=== PATIENT | male | born 1945 | race Caucasian/White ===

== ENCOUNTER → 2018-08-08 06:27 | Outpatient (CLI) | payer OTHER | END | disposition home or self-care (01) | LOC: LAB 06:27 | DX: D50.0 Iron deficiency anemia secondary to blood loss (chronic) (principal); D51.8 Other vitamin B12 deficiency anemias; E03.8 Other specified hypothyroidism; N40.0 Benign prostatic hyperplasia without lower urinary tract symptoms; I10 Essential (primary) hypertension; R19.5 Other fecal abnormalities; D51.1 Vitamin B12 deficiency anemia due to selective vitamin B12 malabsorption with proteinuria; D55.0 Anemia due to glucose-6-phosphate dehydrogenase [G6PD] deficiency; E06.3 Autoimmune thyroiditis; E11.9 Type 2 diabetes mellitus without complications; D51.0 Vitamin B12 deficiency anemia due to intrinsic factor deficiency; R97.8 Other abnormal tumor markers; K57.30 Diverticulosis of large intestine without perforation or abscess without bleeding; D68.8 Other specified coagulation defects; D68.32 Hemorrhagic disorder due to extrinsic circulating anticoagulants; R97.0 Elevated carcinoembryonic antigen [CEA]; D50.8 Other iron deficiency anemias ==

== ENCOUNTER 2018-08-16 07:07 | Outpatient (CLI) | payer OTHER | END 2018-08-16 08:08 | disposition home or self-care (01) | LOC: NUCLEAR 07:07 | DX: I11.9 Hypertensive heart disease without heart failure (principal); E11.9 Type 2 diabetes mellitus without complications; I25.10 Atherosclerotic heart disease of native coronary artery without angina pectoris | CPT/HCPCS: 78452; 93017; A9500 ==

== ENCOUNTER 2018-08-22 07:15 | Inpatient (IN) | payer OTHER ==
[~2018-08-22] VITALS: Ht 188 cm; Wt 93.4 kg
[2018-08-22] MEDS ORDERED: LANTUS (16:45)
[2018-08-22] MEDS ORDERED: FORTAMET1000 MG PO (16:46)
[2018-08-22] MEDS ORDERED: COZAAR100 MG PO (16:46)
[2018-08-22] MEDS ORDERED: AMARYL PO (16:47)
[2018-08-22] MEDS ORDERED: NORVASC2.5 M1 PO (16:47)
[2018-08-30] MEDS ORDERED: GLIMEPIRIDE1 MG PO (09:17)
== END 2018-09-02 19:00 | disposition home or self-care (01) | DRG 331 ==
LOC: ADM 07:15 → EDSTATUS 07:15 → O/R 08-30 05:45 → RECOVERY 08-30 07:15 → SURH 08-31 18:51 → O/R 08-31 22:02 → SURH 08-31 22:05 → MEDI 08-31 22:05 → SURH 09-02 19:00
PROVIDERS: Colon & Rectal Surgery
PROC: 0DJD8ZZ Inspection of Lower Intestinal Tract, Via Natural or Artificial Opening Endoscopic (ICD-10-PCS; 2018-08-30)
PROC: 5A09457 Assistance with Respiratory Ventilation, 24-96 Consecutive Hours, Continuous Positive Airway Pressure (ICD-10-PCS; 2018-08-30)
PROC: 4A033R1 Measurement of Arterial Saturation, Peripheral, Percutaneous Approach (ICD-10-PCS; 2018-08-30)
PROC: 3E0F7GC Introduction of Other Therapeutic Substance into Respiratory Tract, Via Natural or Artificial Opening (ICD-10-PCS; 2018-08-30)
PROC: 0DTN4ZZ Resection of Sigmoid Colon, Percutaneous Endoscopic Approach (ICD-10-PCS; principal; 2018-08-30 14:15)
PROC: 4A12X4Z Monitoring of Cardiac Electrical Activity, External Approach (ICD-10-PCS; 2018-08-31)
DX: K57.32 Diverticulitis of large intestine without perforation or abscess without bleeding (principal); G47.33 Obstructive sleep apnea (adult) (pediatric); I11.9 Hypertensive heart disease without heart failure; E11.9 Type 2 diabetes mellitus without complications; J44.9 Chronic obstructive pulmonary disease, unspecified; E78.00 Pure hypercholesterolemia, unspecified; E03.8 Other specified hypothyroidism; D64.89 Other specified anemias; E53.8 Deficiency of other specified B group vitamins

== ENCOUNTER 2018-11-16 07:21 | Outpatient (CLI) | payer OTHER ==
[~2018-11-16 07:21] MED LIST: AMARYL PO; COZAAR100 MG PO; FORTAMET1000 MG PO; GLIMEPIRIDE1 MG PO; LANTUS; NORVASC2.5 M1 PO
== END 2018-11-16 07:30 | disposition home or self-care (01) ==
LOC: LAB 07:21
DX: D50.0 Iron deficiency anemia secondary to blood loss (chronic) (principal); D51.8 Other vitamin B12 deficiency anemias; D51.1 Vitamin B12 deficiency anemia due to selective vitamin B12 malabsorption with proteinuria; D51.0 Vitamin B12 deficiency anemia due to intrinsic factor deficiency; I10 Essential (primary) hypertension; E03.8 Other specified hypothyroidism

== ENCOUNTER 2019-10-06 05:18 | Day surgery (SDC) | payer OTHER | END 2019-10-06 10:05 | disposition home or self-care (01) | LOC: AMB-ENDOS 05:18 | DX: K57.32 Diverticulitis of large intestine without perforation or abscess without bleeding (principal); K29.50 Unspecified chronic gastritis without bleeding; K44.9 Diaphragmatic hernia without obstruction or gangrene; K64.1 Second degree hemorrhoids ==

== ENCOUNTER 2019-12-05 06:46 | Outpatient (CLI) | payer OTHER | END 2019-12-05 06:56 | disposition home or self-care (01) | LOC: LAB 06:46 | DX: D50.8 Other iron deficiency anemias (principal); I10 Essential (primary) hypertension; E11.9 Type 2 diabetes mellitus without complications; D63.8 Anemia in other chronic diseases classified elsewhere; R97.0 Elevated carcinoembryonic antigen [CEA]; R97.8 Other abnormal tumor markers; D50.0 Iron deficiency anemia secondary to blood loss (chronic); K57.30 Diverticulosis of large intestine without perforation or abscess without bleeding; D68.32 Hemorrhagic disorder due to extrinsic circulating anticoagulants ==

== ENCOUNTER 2020-05-22 06:52 | Outpatient (CLI) | payer OTHER | END 2020-05-22 07:03 | disposition home or self-care (01) | LOC: LAB 06:52 | PROVIDERS: ATTEND Internal Medicine Hematology & Oncology | DX: D50.8 Other iron deficiency anemias (principal); I10 Essential (primary) hypertension; D47.2 Monoclonal gammopathy; C90.00 Multiple myeloma not having achieved remission; D63.1 Anemia in chronic kidney disease; D50.0 Iron deficiency anemia secondary to blood loss (chronic); D51.1 Vitamin B12 deficiency anemia due to selective vitamin B12 malabsorption with proteinuria; K57.30 Diverticulosis of large intestine without perforation or abscess without bleeding; D68.32 Hemorrhagic disorder due to extrinsic circulating anticoagulants ==

== ENCOUNTER → 2020-09-09 06:21 | Outpatient (CLI) | payer OTHER | END | disposition home or self-care (01) | LOC: LAB 06:21 | PROVIDERS: ATTEND Internal Medicine Nephrology | DX: I10 Essential (primary) hypertension (principal); E11.22 Type 2 diabetes mellitus with diabetic chronic kidney disease; R80.8 Other proteinuria; D50.8 Other iron deficiency anemias; D47.2 Monoclonal gammopathy; C90.00 Multiple myeloma not having achieved remission; D50.0 Iron deficiency anemia secondary to blood loss (chronic); D51.1 Vitamin B12 deficiency anemia due to selective vitamin B12 malabsorption with proteinuria; K57.30 Diverticulosis of large intestine without perforation or abscess without bleeding; D68.32 Hemorrhagic disorder due to extrinsic circulating anticoagulants ==

== ENCOUNTER → 2021-01-27 06:44 | Outpatient (CLI) | payer OTHER | END | disposition home or self-care (01) | LOC: LAB 06:44 | PROVIDERS: ATTEND Internal Medicine Hematology & Oncology | DX: I10 Essential (primary) hypertension (principal); D50.8 Other iron deficiency anemias; R74.02 Elevation of levels of lactic acid dehydrogenase [LDH]; K76.89 Other specified diseases of liver; C90.00 Multiple myeloma not having achieved remission; D50.0 Iron deficiency anemia secondary to blood loss (chronic); D51.1 Vitamin B12 deficiency anemia due to selective vitamin B12 malabsorption with proteinuria; E11.9 Type 2 diabetes mellitus without complications; K57.30 Diverticulosis of large intestine without perforation or abscess without bleeding; D68.32 Hemorrhagic disorder due to extrinsic circulating anticoagulants ==

== ENCOUNTER 2021-02-19 07:17 | Outpatient (CLI) | payer OTHER | END 2021-02-19 07:21 | disposition home or self-care (01) | LOC: LAB 07:17 | PROVIDERS: ATTEND Internal Medicine Nephrology | DX: E11.21 Type 2 diabetes mellitus with diabetic nephropathy (principal); R80.8 Other proteinuria; I10 Essential (primary) hypertension ==

== ENCOUNTER 2021-02-27 06:39 | Outpatient (CLI) | payer OTHER | END 2021-02-27 06:41 | disposition home or self-care (01) | LOC: LAB 06:39 | PROVIDERS: ATTEND Internal Medicine Hematology & Oncology | DX: D50.8 Other iron deficiency anemias (principal); I10 Essential (primary) hypertension; R74.02 Elevation of levels of lactic acid dehydrogenase [LDH]; K76.89 Other specified diseases of liver; R79.89 Other specified abnormal findings of blood chemistry; E11.9 Type 2 diabetes mellitus without complications; D68.32 Hemorrhagic disorder due to extrinsic circulating anticoagulants; K57.30 Diverticulosis of large intestine without perforation or abscess without bleeding; D51.1 Vitamin B12 deficiency anemia due to selective vitamin B12 malabsorption with proteinuria; D50.0 Iron deficiency anemia secondary to blood loss (chronic); C90.00 Multiple myeloma not having achieved remission ==

== ENCOUNTER → 2021-03-25 06:41 | Outpatient (CLI) | payer OTHER ==
[~2021-03-25 06:41] MED LIST changes: +ABANEU-SL TABL1 EACH; +BENADRYL25 MG PO; +CHILDREN'S ASPI81 MG; +CORTISONE60 GM; +FUSION PLUS CA1 EACH; +HUMALOG100 UNIT/1; +JARDIANCE25 MG; +LIPITOR20 MG PO; +LORATADINE10 MG PO; +METFORMIN HCL1000 MG; +MONTELUKAST SOD10 MG PO; +NIFEDIPINE20 MG; +SYNTHROID50 MCG
== END | disposition home or self-care (01) ==
LOC: LAB 06:41
PROVIDERS: ATTEND Internal Medicine Hematology & Oncology
DX: E78.9 Disorder of lipoprotein metabolism, unspecified (principal); E11.65 Type 2 diabetes mellitus with hyperglycemia

== ENCOUNTER 2021-04-09 16:11 | Outpatient (CLI) | payer OTHER ==
[~2021-04-09 16:11] MED LIST changes: -ABANEU-SL TABL1 EACH; -BENADRYL25 MG PO; -CHILDREN'S ASPI81 MG; -CORTISONE60 GM; -FUSION PLUS CA1 EACH; -HUMALOG100 UNIT/1; -JARDIANCE25 MG; -LIPITOR20 MG PO; -LORATADINE10 MG PO; -METFORMIN HCL1000 MG; -MONTELUKAST SOD10 MG PO; -NIFEDIPINE20 MG; -SYNTHROID50 MCG
== END 2021-04-09 16:15 | disposition home or self-care (01) ==
LOC: RAD 16:11
PROVIDERS: ATTEND Internal Medicine Hematology & Oncology
DX: C90.00 Multiple myeloma not having achieved remission (principal); D50.0 Iron deficiency anemia secondary to blood loss (chronic); D51.1 Vitamin B12 deficiency anemia due to selective vitamin B12 malabsorption with proteinuria; I10 Essential (primary) hypertension; E11.9 Type 2 diabetes mellitus without complications; K57.30 Diverticulosis of large intestine without perforation or abscess without bleeding; D68.32 Hemorrhagic disorder due to extrinsic circulating anticoagulants

== ENCOUNTER 2021-04-25 06:48 | Outpatient (CLI) | payer OTHER | END 2021-04-25 06:49 | disposition home or self-care (01) | LOC: LAB 06:48 | PROVIDERS: ATTEND Internal Medicine Hematology & Oncology | DX: D50.8 Other iron deficiency anemias (principal); I10 Essential (primary) hypertension; R74.02 Elevation of levels of lactic acid dehydrogenase [LDH]; K76.89 Other specified diseases of liver; C90.00 Multiple myeloma not having achieved remission; D50.0 Iron deficiency anemia secondary to blood loss (chronic); D51.1 Vitamin B12 deficiency anemia due to selective vitamin B12 malabsorption with proteinuria; E11.9 Type 2 diabetes mellitus without complications; K57.30 Diverticulosis of large intestine without perforation or abscess without bleeding; D68.32 Hemorrhagic disorder due to extrinsic circulating anticoagulants ==

== ENCOUNTER 2021-05-05 17:34 | Inpatient (IN) | payer OTHER ==
[~2021-05-05] VITALS: Ht 188 cm; Wt 89.4 kg
[2021-05-05] MEDS ORDERED: LIPITOR20 MG PO (18:06)
[2021-05-05] MEDS ORDERED: METFORMIN HCL1000 MG (18:06)
[2021-05-05] MEDS ORDERED: JARDIANCE25 MG (18:06)
[2021-05-05] MEDS ORDERED: NIFEDIPINE20 MG (18:06)
[2021-05-05] MEDS ORDERED: ABANEU-SL TABL1 EACH (18:07)
[2021-05-05] MEDS ORDERED: SYNTHROID50 MCG (18:07)
[2021-05-05] MEDS ORDERED: FUSION PLUS CA1 EACH (18:07)
[2021-05-05] MEDS ORDERED: CHILDREN'S ASPI81 MG (18:07)
[2021-05-05] MEDS ORDERED: CORTISONE60 GM (18:08)
[2021-05-05] MEDS ORDERED: HUMALOG100 UNIT/1 (18:09)
[2021-05-08] MEDS ORDERED: MONTELUKAST SOD10 MG PO (14:35)
[2021-05-08] MEDS ORDERED: LORATADINE10 MG PO (14:35)
[2021-05-08] MEDS ORDERED: BENADRYL25 MG PO (14:35)
== END 2021-05-08 14:53 | disposition home or self-care (01) | DRG 607 ==
LOC: ER 17:34 → SEC-K 05-06 10:30 → MEDJ 05-06 12:32
PROVIDERS: ADMIT Internal Medicine Geriatric Medicine; ATTEND Internal Medicine Geriatric Medicine
DX: L27.0 Generalized skin eruption due to drugs and medicaments taken internally (principal); C90.00 Multiple myeloma not having achieved remission; N17.8 Other acute kidney failure; T45.1X5A Adverse effect of antineoplastic and immunosuppressive drugs, initial encounter; E86.0 Dehydration; E11.65 Type 2 diabetes mellitus with hyperglycemia; E53.8 Deficiency of other specified B group vitamins; T38.0X5A Adverse effect of glucocorticoids and synthetic analogues, initial encounter; Z20.822 Contact with and (suspected) exposure to COVID-19

== ENCOUNTER 2021-05-27 08:06 | Outpatient (CLI) | payer OTHER ==
[~2021-05-27 08:06] MED LIST changes: +ABANEU-SL TABL1 EACH; +BENADRYL25 MG PO; +CHILDREN'S ASPI81 MG; +CORTISONE60 GM; +FUSION PLUS CA1 EACH; +HUMALOG100 UNIT/1; +JARDIANCE25 MG; +LIPITOR20 MG PO; +LORATADINE10 MG PO; +METFORMIN HCL1000 MG; +MONTELUKAST SOD10 MG PO; +NIFEDIPINE20 MG; +SYNTHROID50 MCG
== END 2021-05-27 08:24 | disposition home or self-care (01) ==
LOC: LAB 08:06
PROVIDERS: ATTEND Internal Medicine Hematology & Oncology
DX: D50.8 Other iron deficiency anemias (principal); I10 Essential (primary) hypertension; R74.02 Elevation of levels of lactic acid dehydrogenase [LDH]; K76.89 Other specified diseases of liver; C90.00 Multiple myeloma not having achieved remission; D50.0 Iron deficiency anemia secondary to blood loss (chronic); D51.1 Vitamin B12 deficiency anemia due to selective vitamin B12 malabsorption with proteinuria; E11.9 Type 2 diabetes mellitus without complications; K57.30 Diverticulosis of large intestine without perforation or abscess without bleeding; D68.32 Hemorrhagic disorder due to extrinsic circulating anticoagulants

== ENCOUNTER → 2021-06-30 06:37 | Outpatient (CLI) | payer OTHER | END | disposition home or self-care (01) | LOC: LAB 06:37 | PROVIDERS: ATTEND Internal Medicine Hematology & Oncology | DX: I10 Essential (primary) hypertension (principal); D50.8 Other iron deficiency anemias; R79.89 Other specified abnormal findings of blood chemistry; R74.02 Elevation of levels of lactic acid dehydrogenase [LDH]; K76.89 Other specified diseases of liver; D47.2 Monoclonal gammopathy; C90.00 Multiple myeloma not having achieved remission; D50.0 Iron deficiency anemia secondary to blood loss (chronic); D51.1 Vitamin B12 deficiency anemia due to selective vitamin B12 malabsorption with proteinuria; E11.9 Type 2 diabetes mellitus without complications; K57.30 Diverticulosis of large intestine without perforation or abscess without bleeding; D68.32 Hemorrhagic disorder due to extrinsic circulating anticoagulants; R05 Cough; Z20.89 Contact with and (suspected) exposure to other communicable diseases; Z03.818 Encounter for observation for suspected exposure to other biological agents ruled out ==

== ENCOUNTER → 2021-08-18 06:52 | Outpatient (CLI) | payer OTHER | END | disposition home or self-care (01) | LOC: LAB 06:52 | PROVIDERS: ATTEND Internal Medicine Hematology & Oncology | DX: D50.8 Other iron deficiency anemias (principal); R79.89 Other specified abnormal findings of blood chemistry; I10 Essential (primary) hypertension; R74.02 Elevation of levels of lactic acid dehydrogenase [LDH]; K76.89 Other specified diseases of liver; D51.8 Other vitamin B12 deficiency anemias; C90.00 Multiple myeloma not having achieved remission; D50.0 Iron deficiency anemia secondary to blood loss (chronic); D51.1 Vitamin B12 deficiency anemia due to selective vitamin B12 malabsorption with proteinuria; K57.30 Diverticulosis of large intestine without perforation or abscess without bleeding; D68.32 Hemorrhagic disorder due to extrinsic circulating anticoagulants; E11.21 Type 2 diabetes mellitus with diabetic nephropathy; R80.8 Other proteinuria; E03.8 Other specified hypothyroidism; E78.2 Mixed hyperlipidemia; E56.8 Deficiency of other vitamins; N39.0 Urinary tract infection, site not specified; Z12.11 Encounter for screening for malignant neoplasm of colon; E55.9 Vitamin D deficiency, unspecified; N28.89 Other specified disorders of kidney and ureter; C18.0 Malignant neoplasm of cecum; K92.1 Melena; Z12.5 Encounter for screening for malignant neoplasm of prostate ==

== ENCOUNTER → 2021-08-20 07:24 | Outpatient (CLI) | payer OTHER | END | disposition home or self-care (01) | LOC: LAB 07:24 | PROVIDERS: ATTEND Internal Medicine Geriatric Medicine | DX: E03.8 Other specified hypothyroidism (principal); D50.8 Other iron deficiency anemias; E78.2 Mixed hyperlipidemia; I11.9 Hypertensive heart disease without heart failure; E56.8 Deficiency of other vitamins; N39.0 Urinary tract infection, site not specified; Z12.11 Encounter for screening for malignant neoplasm of colon; E55.9 Vitamin D deficiency, unspecified; N19 Unspecified kidney failure; E11.9 Type 2 diabetes mellitus without complications; R80.8 Other proteinuria; C18.0 Malignant neoplasm of cecum; K92.1 Melena; Z12.5 Encounter for screening for malignant neoplasm of prostate ==

== ENCOUNTER 2021-10-20 06:18 | Outpatient (CLI) | payer OTHER | END 2021-10-20 06:19 | disposition home or self-care (01) | LOC: LAB 06:18 | PROVIDERS: ATTEND Internal Medicine Hematology & Oncology | DX: C90.00 Multiple myeloma not having achieved remission (principal); D50.0 Iron deficiency anemia secondary to blood loss (chronic); D51.1 Vitamin B12 deficiency anemia due to selective vitamin B12 malabsorption with proteinuria; I10 Essential (primary) hypertension; E11.9 Type 2 diabetes mellitus without complications; K57.30 Diverticulosis of large intestine without perforation or abscess without bleeding; D68.32 Hemorrhagic disorder due to extrinsic circulating anticoagulants; C61 Malignant neoplasm of prostate ==

== ENCOUNTER 2021-12-24 06:26 | Outpatient (CLI) | payer OTHER | END 2021-12-24 06:27 | disposition home or self-care (01) | LOC: LAB 06:26 | PROVIDERS: ATTEND Internal Medicine Hematology & Oncology | DX: D50.8 Other iron deficiency anemias (principal); R79.9 Abnormal finding of blood chemistry, unspecified; I10 Essential (primary) hypertension; R74.02 Elevation of levels of lactic acid dehydrogenase [LDH]; K76.89 Other specified diseases of liver; D47.2 Monoclonal gammopathy; C90.00 Multiple myeloma not having achieved remission; D50.0 Iron deficiency anemia secondary to blood loss (chronic); D51.1 Vitamin B12 deficiency anemia due to selective vitamin B12 malabsorption with proteinuria; E11.9 Type 2 diabetes mellitus without complications; K57.30 Diverticulosis of large intestine without perforation or abscess without bleeding; D68.32 Hemorrhagic disorder due to extrinsic circulating anticoagulants ==

== ENCOUNTER 2022-02-18 06:33 | Outpatient (CLI) | payer OTHER | END 2022-02-18 06:34 | disposition home or self-care (01) | LOC: LAB 06:33 | PROVIDERS: ATTEND Internal Medicine Hematology & Oncology | DX: D50.8 Other iron deficiency anemias (principal); R79.9 Abnormal finding of blood chemistry, unspecified; I10 Essential (primary) hypertension; R74.02 Elevation of levels of lactic acid dehydrogenase [LDH]; K76.89 Other specified diseases of liver; D51.8 Other vitamin B12 deficiency anemias; D47.2 Monoclonal gammopathy; C90.00 Multiple myeloma not having achieved remission; D50.0 Iron deficiency anemia secondary to blood loss (chronic); D51.1 Vitamin B12 deficiency anemia due to selective vitamin B12 malabsorption with proteinuria; E11.9 Type 2 diabetes mellitus without complications; K57.30 Diverticulosis of large intestine without perforation or abscess without bleeding; D68.32 Hemorrhagic disorder due to extrinsic circulating anticoagulants ==

== ENCOUNTER 2022-04-08 06:10 | Outpatient (CLI) | payer OTHER | END 2022-04-08 06:11 | disposition home or self-care (01) | LOC: LAB 06:10 | PROVIDERS: ATTEND Internal Medicine Hematology & Oncology | DX: D50.8 Other iron deficiency anemias (principal); R79.9 Abnormal finding of blood chemistry, unspecified; I10 Essential (primary) hypertension; R74.02 Elevation of levels of lactic acid dehydrogenase [LDH]; K76.89 Other specified diseases of liver; D47.2 Monoclonal gammopathy; C90.00 Multiple myeloma not having achieved remission; D68.32 Hemorrhagic disorder due to extrinsic circulating anticoagulants; K57.30 Diverticulosis of large intestine without perforation or abscess without bleeding; E11.9 Type 2 diabetes mellitus without complications; D51.1 Vitamin B12 deficiency anemia due to selective vitamin B12 malabsorption with proteinuria; D50.0 Iron deficiency anemia secondary to blood loss (chronic) ==

== ENCOUNTER 2022-06-24 06:56 | Outpatient (CLI) | payer OTHER | END 2022-06-24 07:02 | disposition home or self-care (01) | LOC: LAB 06:56 | PROVIDERS: ATTEND Internal Medicine Hematology & Oncology | DX: D50.8 Other iron deficiency anemias (principal); R79.9 Abnormal finding of blood chemistry, unspecified; I10 Essential (primary) hypertension; R74.02 Elevation of levels of lactic acid dehydrogenase [LDH]; K76.89 Other specified diseases of liver; D47.2 Monoclonal gammopathy; C90.00 Multiple myeloma not having achieved remission; D50.0 Iron deficiency anemia secondary to blood loss (chronic); D51.1 Vitamin B12 deficiency anemia due to selective vitamin B12 malabsorption with proteinuria; K57.30 Diverticulosis of large intestine without perforation or abscess without bleeding; D68.32 Hemorrhagic disorder due to extrinsic circulating anticoagulants; E11.65 Type 2 diabetes mellitus with hyperglycemia; E78.00 Pure hypercholesterolemia, unspecified ==

== ENCOUNTER → 2022-08-10 06:52 | Outpatient (CLI) | payer OTHER | END | disposition home or self-care (01) | LOC: LAB 06:52 | PROVIDERS: ATTEND Internal Medicine Hematology & Oncology | DX: D50.8 Other iron deficiency anemias (principal); I10 Essential (primary) hypertension; R74.02 Elevation of levels of lactic acid dehydrogenase [LDH]; K76.89 Other specified diseases of liver; C90.00 Multiple myeloma not having achieved remission; D50.0 Iron deficiency anemia secondary to blood loss (chronic); D51.1 Vitamin B12 deficiency anemia due to selective vitamin B12 malabsorption with proteinuria; E11.9 Type 2 diabetes mellitus without complications; K57.30 Diverticulosis of large intestine without perforation or abscess without bleeding; D68.32 Hemorrhagic disorder due to extrinsic circulating anticoagulants; R79.9 Abnormal finding of blood chemistry, unspecified ==

== ENCOUNTER 2022-10-27 06:29 | Outpatient (CLI) | payer OTHER | END 2022-10-27 06:31 | disposition home or self-care (01) | LOC: LAB 06:29 | PROVIDERS: ATTEND Internal Medicine Hematology & Oncology | DX: C90.00 Multiple myeloma not having achieved remission (principal); D50.0 Iron deficiency anemia secondary to blood loss (chronic); D51.1 Vitamin B12 deficiency anemia due to selective vitamin B12 malabsorption with proteinuria; I10 Essential (primary) hypertension; E11.9 Type 2 diabetes mellitus without complications; K57.30 Diverticulosis of large intestine without perforation or abscess without bleeding; D68.32 Hemorrhagic disorder due to extrinsic circulating anticoagulants; D58.0 Hereditary spherocytosis; R74.02 Elevation of levels of lactic acid dehydrogenase [LDH]; K76.89 Other specified diseases of liver; R97.0 Elevated carcinoembryonic antigen [CEA]; R97.8 Other abnormal tumor markers; R97.20 Elevated prostate specific antigen [PSA]; D47.2 Monoclonal gammopathy; D50.8 Other iron deficiency anemias; D51.8 Other vitamin B12 deficiency anemias; R79.9 Abnormal finding of blood chemistry, unspecified ==

== ENCOUNTER 2022-11-10 13:02 | Outpatient (CLI) | payer OTHER | END 2022-11-10 13:06 | disposition home or self-care (01) | LOC: LAB 13:02 | PROVIDERS: ATTEND Radiology Diagnostic Radiology | DX: C90.00 Multiple myeloma not having achieved remission (principal) ==

== ENCOUNTER 2022-11-16 07:03 | Outpatient (CLI) | payer OTHER | END 2022-11-16 07:14 | disposition home or self-care (01) | LOC: TOM 07:03 | PROVIDERS: ATTEND Internal Medicine Hematology & Oncology | DX: C90.00 Multiple myeloma not having achieved remission (principal); D50.0 Iron deficiency anemia secondary to blood loss (chronic); D51.1 Vitamin B12 deficiency anemia due to selective vitamin B12 malabsorption with proteinuria; I10 Essential (primary) hypertension; E11.9 Type 2 diabetes mellitus without complications; K57.30 Diverticulosis of large intestine without perforation or abscess without bleeding; D68.32 Hemorrhagic disorder due to extrinsic circulating anticoagulants | CPT/HCPCS: 74177; Q9965 ==

== ENCOUNTER → 2022-12-04 06:13 | Outpatient (CLI) | payer OTHER | END | disposition home or self-care (01) | LOC: LAB 06:13 | PROVIDERS: ATTEND Internal Medicine Hematology & Oncology | DX: D50.8 Other iron deficiency anemias (principal); R79.9 Abnormal finding of blood chemistry, unspecified; I10 Essential (primary) hypertension; R74.02 Elevation of levels of lactic acid dehydrogenase [LDH]; K76.89 Other specified diseases of liver; C90.00 Multiple myeloma not having achieved remission; D50.0 Iron deficiency anemia secondary to blood loss (chronic); D51.1 Vitamin B12 deficiency anemia due to selective vitamin B12 malabsorption with proteinuria; E11.9 Type 2 diabetes mellitus without complications; K57.30 Diverticulosis of large intestine without perforation or abscess without bleeding; D68.32 Hemorrhagic disorder due to extrinsic circulating anticoagulants ==

== ENCOUNTER 2022-12-30 05:15 | Day surgery (SDC) | payer OTHER ==
[2022-12-30] MEDS ORDERED: POLY119PG PO (10:39)
[2022-12-30] MEDS ORDERED: TRAM1TAB98 PO (10:39)
[2022-12-30] MEDS ORDERED: NEURONTIN300 MG PO (10:39)
== END 2022-12-30 12:30 | disposition home or self-care (01) ==
LOC: CIR.AMB 05:15
PROVIDERS: ATTEND Surgery
DX: K40.90 Unilateral inguinal hernia, without obstruction or gangrene, not specified as recurrent (principal); Z88.0 Allergy status to penicillin; I10 Essential (primary) hypertension; E03.9 Hypothyroidism, unspecified; E11.40 Type 2 diabetes mellitus with diabetic neuropathy, unspecified; Z79.4 Long term (current) use of insulin; Z79.84 Long term (current) use of oral hypoglycemic drugs
CPT/HCPCS: 49650; C1781

== ENCOUNTER 2023-01-27 06:26 | Outpatient (CLI) | payer OTHER ==
[~2023-01-27 06:26] MED LIST changes: +NEURONTIN300 MG PO; +POLY119PG PO; +TRAM1TAB98 PO
== END 2023-01-27 06:31 | disposition home or self-care (01) ==
LOC: LAB 06:26
PROVIDERS: ATTEND Internal Medicine Hematology & Oncology
DX: D50.8 Other iron deficiency anemias (principal); R79.9 Abnormal finding of blood chemistry, unspecified; I10 Essential (primary) hypertension; R74.02 Elevation of levels of lactic acid dehydrogenase [LDH]; K76.89 Other specified diseases of liver; D47.2 Monoclonal gammopathy; C90.00 Multiple myeloma not having achieved remission; D50.0 Iron deficiency anemia secondary to blood loss (chronic); D51.1 Vitamin B12 deficiency anemia due to selective vitamin B12 malabsorption with proteinuria; E11.9 Type 2 diabetes mellitus without complications; K57.30 Diverticulosis of large intestine without perforation or abscess without bleeding; D68.32 Hemorrhagic disorder due to extrinsic circulating anticoagulants

== ENCOUNTER → 2023-03-10 06:07 | Outpatient (CLI) | payer OTHER | END | disposition home or self-care (01) | LOC: LAB 06:07 | PROVIDERS: ATTEND Internal Medicine Endocrinology, Diabetes & Metabolism | DX: E78.00 Pure hypercholesterolemia, unspecified (principal); E11.65 Type 2 diabetes mellitus with hyperglycemia ==

== ENCOUNTER 2023-03-10 07:15 | Outpatient (CLI) | payer OTHER | END 2023-03-10 07:16 | disposition home or self-care (01) | LOC: NUCLEAR 07:15 | PROVIDERS: ATTEND Internal Medicine Hematology & Oncology | DX: K82.9 Disease of gallbladder, unspecified (principal); C90.00 Multiple myeloma not having achieved remission; D50.0 Iron deficiency anemia secondary to blood loss (chronic); D51.1 Vitamin B12 deficiency anemia due to selective vitamin B12 malabsorption with proteinuria; I10 Essential (primary) hypertension; E11.9 Type 2 diabetes mellitus without complications; K57.30 Diverticulosis of large intestine without perforation or abscess without bleeding; D68.32 Hemorrhagic disorder due to extrinsic circulating anticoagulants | CPT/HCPCS: 78227; A9537; J2805 ==

== ENCOUNTER 2023-03-25 06:18 | Outpatient (CLI) | payer OTHER | END 2023-03-25 06:24 | disposition home or self-care (01) | LOC: LAB 06:18 | PROVIDERS: ATTEND Internal Medicine Hematology & Oncology | DX: D50.8 Other iron deficiency anemias (principal); R79.9 Abnormal finding of blood chemistry, unspecified; I10 Essential (primary) hypertension; R74.02 Elevation of levels of lactic acid dehydrogenase [LDH]; K76.89 Other specified diseases of liver; C90.00 Multiple myeloma not having achieved remission; D50.0 Iron deficiency anemia secondary to blood loss (chronic); D51.1 Vitamin B12 deficiency anemia due to selective vitamin B12 malabsorption with proteinuria; E11.9 Type 2 diabetes mellitus without complications; K57.30 Diverticulosis of large intestine without perforation or abscess without bleeding; D68.32 Hemorrhagic disorder due to extrinsic circulating anticoagulants ==

== ENCOUNTER 2023-03-31 06:39 | Outpatient (CLI) | payer OTHER | END 2023-03-31 06:41 | disposition home or self-care (01) | LOC: LAB 06:39 | PROVIDERS: ATTEND Internal Medicine Hematology & Oncology | DX: N39.0 Urinary tract infection, site not specified (principal) ==

== ENCOUNTER 2023-05-18 06:08 | Outpatient (CLI) | payer OTHER | END 2023-05-18 06:09 | disposition home or self-care (01) | LOC: LAB 06:08 | PROVIDERS: ATTEND Internal Medicine Hematology & Oncology | DX: C90.00 Multiple myeloma not having achieved remission (principal); D50.0 Iron deficiency anemia secondary to blood loss (chronic); D51.1 Vitamin B12 deficiency anemia due to selective vitamin B12 malabsorption with proteinuria; I10 Essential (primary) hypertension; E11.9 Type 2 diabetes mellitus without complications; K57.30 Diverticulosis of large intestine without perforation or abscess without bleeding; D68.32 Hemorrhagic disorder due to extrinsic circulating anticoagulants ==

== ENCOUNTER 2023-06-04 20:33 | Inpatient (IN) | payer OTHER ==
[~2023-06-04] VITALS: Ht 188 cm; Wt 85.7 kg
[2023-06-10] MEDS ORDERED: CHILDREN'S ASPI81 MG PO (11:29)
[2023-06-10] MEDS ORDERED: ABANEU-SL TABL1 EACH SL (11:29)
[2023-06-10] MEDS ORDERED: nifedipine xl PO (11:29)
[2023-06-10] MEDS ORDERED: ATORVASTATIN CA10 MG PO (11:29)
[2023-06-10] MEDS ORDERED: MEDROLPACK PO (11:29)
[2023-06-10] MEDS ORDERED: SYNTHROID50 MCG PO (11:29)
[2023-06-10] MEDS ORDERED: MELATONIN10 MG PO (11:29)
[2023-06-10] MEDS ORDERED: JARDIANCE25 MG PO (11:29)
[2023-06-10] MEDS ORDERED: FUSION PLUS CA1 EACH PO (11:29)
[2023-06-10] MEDS ORDERED: LANTUS SOL100 UNIT/1 SUBCUTANEO (11:29)
[2023-06-10] MEDS ORDERED: MUCINEX600 MG PO (11:29)
[2023-06-10] MEDS ORDERED: VITAMIN C500 M1 PO (11:29)
[2023-06-10] MEDS ORDERED: METFORMIN HCL1000 M3 PO (11:29)
[2023-06-10] MEDS ORDERED: LOSARTAN-HCTZ1 EAC2 PO (11:29)
[2023-06-10] MEDS ORDERED: PROVENTIL HFA6.7 GM IH (11:29)
[2023-06-10] MEDS ORDERED: BENZONATATE100 MG PO (11:29)
[2023-06-10] MEDS ORDERED: PANTOPRAZOLE SO40 MG PO (11:29)
== END 2023-06-10 11:44 | disposition home or self-care (01) | DRG 177 ==
LOC: ER 20:33 → SEC-K 06-05 18:44 → MEDJ 06-07 08:51 → SEC-K 06-07 15:05 → SURH 06-09 14:38
PROVIDERS: General Practice; ADMIT Internal Medicine Geriatric Medicine; ATTEND Internal Medicine Geriatric Medicine
PROC: XW033E5 Introduction of Remdesivir Anti-infective into Peripheral Vein, Percutaneous Approach, New Technology Group 5 (ICD-10-PCS; principal; 2023-06-05)
PROC: 8E0ZXY6 Isolation (ICD-10-PCS; 2023-06-05)
PROC: 4A12X4Z Monitoring of Cardiac Electrical Activity, External Approach (ICD-10-PCS; 2023-06-05)
PROC: BW24ZZZ Computerized Tomography (CT Scan) of Chest and Abdomen (ICD-10-PCS; 2023-06-05)
DX: U07.1 COVID-19 (principal); J12.82 Pneumonia due to coronavirus disease 2019; C90.00 Multiple myeloma not having achieved remission; K52.1 Toxic gastroenteritis and colitis; T45.1X5A Adverse effect of antineoplastic and immunosuppressive drugs, initial encounter; E87.6 Hypokalemia; E11.40 Type 2 diabetes mellitus with diabetic neuropathy, unspecified; Z79.4 Long term (current) use of insulin; I10 Essential (primary) hypertension; E03.9 Hypothyroidism, unspecified; E86.0 Dehydration; Z79.899 Other long term (current) drug therapy

== ENCOUNTER 2023-06-17 06:41 | Outpatient (CLI) | payer OTHER ==
[~2023-06-17 06:41] MED LIST changes: +ABANEU-SL TABL1 EACH SL; +ATORVASTATIN CA10 MG PO; +BENZONATATE100 MG PO; +CHILDREN'S ASPI81 MG PO; +FUSION PLUS CA1 EACH PO; +JARDIANCE25 MG PO; +LANTUS SOL100 UNIT/1 SUBCUTANEO; +LOSARTAN-HCTZ1 EAC2 PO; +MEDROLPACK PO; +MELATONIN10 MG PO; +METFORMIN HCL1000 M3 PO; +MUCINEX600 MG PO; +PANTOPRAZOLE SO40 MG PO; +PROVENTIL HFA6.7 GM IH; +SYNTHROID50 MCG PO; +VITAMIN C500 M1 PO; +nifedipine xl PO
== END 2023-06-17 06:59 | disposition home or self-care (01) ==
LOC: LAB 06:41
PROVIDERS: ATTEND Internal Medicine Geriatric Medicine
DX: D64.9 Anemia, unspecified (principal); Z88.0 Allergy status to penicillin

== ENCOUNTER 2023-08-07 12:42 | Emergency (ER) | payer OTHER ==
[~2023-08-07] VITALS: Ht 188 cm; Wt 83.9 kg
[2023-08-07 19:04] LABS: HEMATOCRIT 36.4 % (39.0-48.0); MEAN CELL VOLUME 92.6 fL (80.0-100.00); MEAN CORPUSCULAR HEMOGLOBIN 30.5 pg (27.00-32.0); MEAN CORPUSCULAR HGB CONC 32.9 g/dl (32.0-36.0); PLATELET COUNT 214 K/uL (150-450); RED BLOOD COUNT 3.93 M/uL (4.00-6.00); RED CELL DISTRIBUTION WIDTH 16.6 % (11.5-14.5)
[2023-08-07 19:26] LABS: ALBUMIN 2.9 gm/dL (3.4-5.0); BILIRUBIN TOTAL 0.36 mg/dL (0.3-1.2); CALCIUM 8.8 mg/dL (8.5-10.1); CREATININE SERUM 1.19 mg/dL (0.70-1.30); GFR 59.28; GLOBULINA 5.4 G/DL (2.4-3.5); POTASSIUM 3.83 mEq/L (3.5-5.1); TOTAL PROTEIN 8.3 gm/dL (6.4-8.2)
[2023-08-07] MEDS ORDERED: NORFLEX100MG PO (20:44)
[2023-08-07] MEDS ORDERED: DICLOFENAC SODI50 MG PO (20:44)
== END 2023-08-07 20:57 ==
LOC: ER 12:42
PROVIDERS: Nurse Practitioner Family
DX: M54.9 Dorsalgia, unspecified (principal); I10 Essential (primary) hypertension; E03.8 Other specified hypothyroidism; E78.49 Other hyperlipidemia; E11.9 Type 2 diabetes mellitus without complications; Z79.84 Long term (current) use of oral hypoglycemic drugs; Z88.0 Allergy status to penicillin
CPT/HCPCS: 36415; 71046; 72070; 96372; 99283; J1885; J2360

== ENCOUNTER → 2023-08-17 06:25 | Outpatient (CLI) | payer OTHER ==
[~2023-08-17 06:25] MED LIST changes: +DICLOFENAC SODI50 MG PO; +NORFLEX100MG PO
[2023-08-17 07:20] LABS: HEMATOCRIT 36.8 % (39.0-48.0); MEAN CELL VOLUME 92.6 fL (80.0-100.00); MEAN CORPUSCULAR HEMOGLOBIN 30.3 pg (27.00-32.0); MEAN CORPUSCULAR HGB CONC 32.7 g/dl (32.0-36.0); PLATELET COUNT 245 K/uL (150-450); RED BLOOD COUNT 3.98 M/uL (4.00-6.00); RED CELL DISTRIBUTION WIDTH 17.1 % (11.5-14.5)
[2023-08-17 07:37] LABS: BILIRUBIN TOTAL 0.37 mg/dL (0.3-1.2); CREATININE SERUM 1.13 mg/dL (0.70-1.30); GFR 62.92; GLOBULINA 4.5 G/DL (2.4-3.5); POTASSIUM 3.99 mEq/L (3.5-5.1); TOTAL PROTEIN 7.5 gm/dL (6.4-8.2)
[2023-08-17 08:32] LABS: MANUAL PLATELET COUNT 444
[2023-08-17 08:33] LABS: PLATELET ESTIMATE NORMAL (NORMAL)
== END | disposition home or self-care (01) ==
LOC: LAB 06:25
PROVIDERS: ATTEND Internal Medicine Hematology & Oncology
DX: R79.9 Abnormal finding of blood chemistry, unspecified (principal); I10 Essential (primary) hypertension; R74.02 Elevation of levels of lactic acid dehydrogenase [LDH]; K76.89 Other specified diseases of liver; D47.2 Monoclonal gammopathy; C90.00 Multiple myeloma not having achieved remission; D50.0 Iron deficiency anemia secondary to blood loss (chronic); D51.1 Vitamin B12 deficiency anemia due to selective vitamin B12 malabsorption with proteinuria; E11.9 Type 2 diabetes mellitus without complications; K57.30 Diverticulosis of large intestine without perforation or abscess without bleeding; D68.32 Hemorrhagic disorder due to extrinsic circulating anticoagulants; Z88.0 Allergy status to penicillin

== ENCOUNTER 2023-10-19 06:22 | Outpatient (CLI) | payer OTHER ==
[2023-10-19 07:52] LABS: URINE APPEARANCE Clear; URINE BILIRRUBIN Negative (NEGATIVE); URINE BLOOD Negative; URINE COLOR Yellow; URINE LEUKOCYTE Negative; URINE NITRATE Negative; URINE PROTEIN Trace (NEGATIVE); URINE UROBILINOGEN 0.2 E.U./dl
[2023-10-19 07:55] LABS: URINE EPITHELIAL CELLS 2.1 uL (0.0-38.8)
[2023-10-19 08:01] LABS: URINE BACTERIA 3.7 uL (0.0-1933); URINE GLUCOSE >=1000 MG/DL (NEGATIVE); URINE RBC 1.8 uL (0.0-20.8); URINE WBC 1.6 uL (0.0-23.2)
[2023-10-19 08:29] LABS: HEMATOCRIT 41.5 % (39.0-48.0); HEMOGLOBIN 14.2 g/dL (13-16.00); MEAN CELL VOLUME 93.3 fL (80.0-100.00); MEAN CORPUSCULAR HEMOGLOBIN 31.9 pg (27.00-32.0); MEAN CORPUSCULAR HGB CONC 34.2 g/dl (32.0-36.0); PLATELET COUNT 157 K/uL (150-450); RED BLOOD COUNT 4.45 M/uL (4.00-6.00); RED CELL DISTRIBUTION WIDTH 16.3 % (11.5-14.5)
[2023-10-19 08:32] LABS: ALBUMIN 3.4 gm/dL (3.4-5.0); BILIRUBIN TOTAL 0.51 mg/dL (0.3-1.2); CHOL HDL RATIO 2.1 (0-5.0); CREATININE SERUM 1.12 mg/dL (0.70-1.30); GFR 63.57; GLOBULINA 4.4 G/DL (2.4-3.5); POTASSIUM 4.29 mEq/L (3.5-5.1); TOTAL PROTEIN 7.8 gm/dL (6.4-8.2); TSH 1.08 uIU/mL (0.358-3.74)
[2023-10-19 11:40] LABS: FOLIC ACID 18.54 ng/ml (4.78-20)
[2023-10-19 13:33] LABS: MANUAL PLATELET COUNT 352
[2023-10-19 13:39] LABS: PLATELET ESTIMATE NORMAL (NORMAL)
== END 2023-10-19 06:29 | disposition home or self-care (01) ==
LOC: LAB 06:22
PROVIDERS: ATTEND Internal Medicine Hematology & Oncology
DX: D50.9 Iron deficiency anemia, unspecified (principal); E03.9 Hypothyroidism, unspecified; E78.2 Mixed hyperlipidemia; I11.9 Hypertensive heart disease without heart failure; E56.8 Deficiency of other vitamins; N39.0 Urinary tract infection, site not specified; Z12.11 Encounter for screening for malignant neoplasm of colon; R19.5 Other fecal abnormalities; E55.9 Vitamin D deficiency, unspecified; N19 Unspecified kidney failure; E11.9 Type 2 diabetes mellitus without complications

== ENCOUNTER → 2023-12-16 06:26 | Outpatient (CLI) | payer OTHER ==
[2023-12-16 07:30] LABS: PH,URINE 5.5 (5.0-8.0); URINE APPEARANCE Clear; URINE BILIRRUBIN Negative (NEGATIVE); URINE BLOOD Small; URINE COLOR Yellow; URINE LEUKOCYTE Negative; URINE NITRATE Negative; URINE UROBILINOGEN 0.2 E.U./dl
[2023-12-16 07:33] LABS: URINE BACTERIA 16.3 uL (0.0-1933); URINE EPITHELIAL CELLS 5.5 uL (0.0-38.8); URINE RBC 8.7 uL (0.0-20.8); URINE WBC 2.7 uL (0.0-23.2)
[2023-12-16 07:36] LABS: MEAN CELL VOLUME 93.7 fL (80.0-100.00); MEAN CORPUSCULAR HEMOGLOBIN 32.1 pg (27.00-32.0); MEAN CORPUSCULAR HGB CONC 34.2 g/dl (32.0-36.0); PLATELET COUNT 155 K/uL (150-450); RED BLOOD COUNT 4.38 M/uL (4.00-6.00); RED CELL DISTRIBUTION WIDTH 16.1 % (11.5-14.5)
[2023-12-16 07:37] LABS: URINE GLUCOSE >=1000 MG/DL (NEGATIVE); URINE PROTEIN 100 (NEGATIVE)
[2023-12-16 07:38] LABS: ALBUMIN 3.5 gm/dL (3.4-5.0); BILIRUBIN TOTAL 0.77 mg/dL (0.3-1.2); GFR 72.27; POTASSIUM 3.74 mEq/L (3.5-5.1); TOTAL PROTEIN 7.5 gm/dL (6.4-8.2)
[2023-12-17 12:17] LABS: MANUAL PLATELET COUNT 214
[2023-12-17 12:19] LABS: PLATELET ESTIMATE NORMAL (NORMAL)
[2023-12-17 18:07] LABS: kappa lambda r 1.32 (0.26-1.65); kappa light 107.8 mg/L (3.3-19.4); lambda light 81.6 mg/L (5.7-26.3)
[2023-12-18 16:08] LABS: IMM A 524 mg/dL (61-437); IMM G 1740 mg/dL (603-1613); IMM M 67 mg/dL (15-143); alpha 1 g 0.1 g/dL (0.0-0.4); alpha 2 0.6 g/dL (0.4-1.0); beta g 1.1 g/dL (0.7-1.3); gamma g 1.8 g/dL (0.4-1.8); globulin t 3.6 g/dL (2.2-3.9); m spike Not Observed g/dL (Not Observed); prot total 7.3 g/dL (6.0-8.5)
[2023-12-18 18:12] LABS: BETA-2-MICROGLOBULINA 1.7 mg/L (0.6-2.4)
[2023-12-20 16:07] LABS: albu 68.6 % (.); alp 4.8 % (.); alph 2 3.1 % (.); beta 11.8 % (.); gam 11.7 % (.); m spi 0 % (Not Observed); prot 119.1 mg/dL (Not Estab.)
== END | disposition home or self-care (01) ==
LOC: LAB 06:26
PROVIDERS: ATTEND Internal Medicine Hematology & Oncology
DX: C90.00 Multiple myeloma not having achieved remission (principal); D50.0 Iron deficiency anemia secondary to blood loss (chronic); D51.1 Vitamin B12 deficiency anemia due to selective vitamin B12 malabsorption with proteinuria; I10 Essential (primary) hypertension; E11.9 Type 2 diabetes mellitus without complications; K57.30 Diverticulosis of large intestine without perforation or abscess without bleeding; D68.32 Hemorrhagic disorder due to extrinsic circulating anticoagulants; D50.8 Other iron deficiency anemias; R79.9 Abnormal finding of blood chemistry, unspecified; D47.2 Monoclonal gammopathy; D63.8 Anemia in other chronic diseases classified elsewhere; E11.65 Type 2 diabetes mellitus with hyperglycemia

== ENCOUNTER 2024-01-10 07:10 | Outpatient (CLI) | payer OTHER | END 2024-01-10 07:18 | disposition home or self-care (01) | LOC: TOM 07:10 | PROVIDERS: ATTEND Internal Medicine Hematology & Oncology | DX: C90.00 Multiple myeloma not having achieved remission (principal); D50.0 Iron deficiency anemia secondary to blood loss (chronic); D51.1 Vitamin B12 deficiency anemia due to selective vitamin B12 malabsorption with proteinuria; I10 Essential (primary) hypertension; E11.9 Type 2 diabetes mellitus without complications; K57.30 Diverticulosis of large intestine without perforation or abscess without bleeding; D68.32 Hemorrhagic disorder due to extrinsic circulating anticoagulants; R10.30 Lower abdominal pain, unspecified; C44.321 Squamous cell carcinoma of skin of nose | CPT/HCPCS: 74178; Q9965 ==

== ENCOUNTER 2024-01-31 06:22 | Outpatient (CLI) | payer OTHER ==
[2024-01-31 07:33] LABS: PH,URINE 5.5 (5.0-8.0); URINE APPEARANCE Clear; URINE BILIRRUBIN Negative (NEGATIVE); URINE BLOOD Trace; URINE COLOR Yellow; URINE LEUKOCYTE Negative; URINE NITRATE Negative; URINE UROBILINOGEN 0.2 E.U./dl
[2024-01-31 07:36] LABS: URINE BACTERIA 6.2 uL (0.0-1933); URINE EPITHELIAL CELLS 1.5 uL (0.0-38.8); URINE RBC 5.6 uL (0.0-20.8)
[2024-01-31 07:50] LABS: HEMATOCRIT 41.6 % (39.0-48.0); HEMOGLOBIN 14.1 g/dL (13-16.00); MEAN CELL VOLUME 93.6 fL (80.0-100.00); MEAN CORPUSCULAR HEMOGLOBIN 31.7 pg (27.00-32.0); MEAN CORPUSCULAR HGB CONC 33.9 g/dl (32.0-36.0); PLATELET COUNT 144 K/uL (150-450); RED BLOOD COUNT 4.44 M/uL (4.00-6.00)
[2024-01-31 08:22] LABS: URINE GLUCOSE >=1000 MG/DL (NEGATIVE); URINE PROTEIN 100 (NEGATIVE); URINE WBC 1.5 uL (0.0-23.2)
[2024-01-31 08:23] LABS: ALBUMIN 3.3 gm/dL (3.4-5.0); BILIRUBIN TOTAL 0.64 mg/dL (0.3-1.2); CHOL HDL RATIO 1.9 (0-5.0); CREATININE SERUM 0.96 mg/dL (0.70-1.30); GFR 75.75; POTASSIUM 4.32 mEq/L (3.5-5.1); TOTAL PROTEIN 7.3 gm/dL (6.4-8.2); TSH 2.53 uIU/mL (0.358-3.74)
== END 2024-01-31 06:23 | disposition home or self-care (01) ==
LOC: LAB 06:22
PROVIDERS: ATTEND Internal Medicine Geriatric Medicine
DX: D50.9 Iron deficiency anemia, unspecified (principal); E03.9 Hypothyroidism, unspecified; E78.2 Mixed hyperlipidemia; I11.9 Hypertensive heart disease without heart failure; E56.8 Deficiency of other vitamins; N39.0 Urinary tract infection, site not specified; Z12.11 Encounter for screening for malignant neoplasm of colon; R19.5 Other fecal abnormalities; E55.9 Vitamin D deficiency, unspecified; N19 Unspecified kidney failure; E11.9 Type 2 diabetes mellitus without complications

== ENCOUNTER → 2024-05-05 | Outpatient (CLI) | payer OTHER ==
[2024-05-05 08:53] LABS: PH,URINE 5.5 (5.0-8.0); URINE APPEARANCE Clear; URINE BILIRRUBIN Negative (NEGATIVE); URINE BLOOD Trace; URINE COLOR Yellow; URINE LEUKOCYTE Negative; URINE NITRATE Negative; URINE UROBILINOGEN 0.2 E.U./dl
[2024-05-05 08:55] LABS: HEMATOCRIT 40.7 % (39.0-48.0); HEMOGLOBIN 14.1 g/dL (13-16.00); MEAN CORPUSCULAR HEMOGLOBIN 31.6 pg (27.00-32.0); MEAN CORPUSCULAR HGB CONC 34.7 g/dl (32.0-36.0); PLATELET COUNT 138 K/uL (150-450); RED BLOOD COUNT 4.47 M/uL (4.00-6.00); RED CELL DISTRIBUTION WIDTH 16.6 % (11.5-14.5)
[2024-05-05 09:00] LABS: URINE BACTERIA 23.9 uL (0.0-1933); URINE EPITHELIAL CELLS 3.7 uL (0.0-38.8); URINE RBC 5.1 uL (0.0-20.8)
[2024-05-05 09:07] LABS: URINE GLUCOSE >=1000 MG/DL (NEGATIVE); URINE PROTEIN 100 (NEGATIVE); URINE WBC 1.3 uL (0.0-23.2)
[2024-05-05 09:40] LABS: ALBUMIN 3.4 gm/dL (3.4-5.0); BILIRUBIN TOTAL 0.88 mg/dL (0.3-1.2); CALCIUM 8.6 mg/dL (8.5-10.1); CHOL HDL RATIO 1.7 (0-5.0); CREATININE SERUM 0.94 mg/dL (0.70-1.30); GFR 77.61; GLOBULINA 4.1 G/DL (2.4-3.5); POTASSIUM 3.92 mEq/L (3.5-5.1); TOTAL PROTEIN 7.5 gm/dL (6.4-8.2); TSH 2.22 uIU/mL (0.358-3.74)
== END | disposition home or self-care (01) ==
LOC: LAB 08:05
PROVIDERS: ATTEND Internal Medicine Geriatric Medicine
DX: D50.9 Iron deficiency anemia, unspecified (principal); E03.9 Hypothyroidism, unspecified; E78.2 Mixed hyperlipidemia; I11.9 Hypertensive heart disease without heart failure; E56.8 Deficiency of other vitamins; N39.0 Urinary tract infection, site not specified; Z12.11 Encounter for screening for malignant neoplasm of colon; R19.5 Other fecal abnormalities; E55.9 Vitamin D deficiency, unspecified; N19 Unspecified kidney failure; E11.9 Type 2 diabetes mellitus without complications

== ENCOUNTER → 2024-05-22 06:22 | Outpatient (CLI) | payer OTHER ==
[2024-05-22 08:57] LABS: CREATININE URINE 58.4 MG/DL
[2024-05-22 09:20] LABS: CREATINE CLEARANCE 115.5 ML/MIN (97-137); CREATININE SERUM 1.02 mg/dL (0.8-1.3)
== END | disposition home or self-care (01) ==
LOC: LAB 06:22
PROVIDERS: ATTEND Internal Medicine Geriatric Medicine
DX: N19 Unspecified kidney failure (principal); R80.9 Proteinuria, unspecified

== ENCOUNTER 2024-05-29 07:14 | Outpatient (CLI) | payer OTHER ==
[2024-05-29 08:12] LABS: HEMATOCRIT 41.5 % (39.0-48.0); HEMOGLOBIN 14.4 g/dL (13-16.00); MEAN CELL VOLUME 92.2 fL (80.0-100.00); MEAN CORPUSCULAR HEMOGLOBIN 31.9 pg (27.00-32.0); MEAN CORPUSCULAR HGB CONC 34.6 g/dl (32.0-36.0); RED BLOOD COUNT 4.51 M/uL (4.00-6.00); RED CELL DISTRIBUTION WIDTH 16.4 % (11.5-14.5)
[2024-05-29 08:22] LABS: PLATELET COUNT 127 K/uL (150-450)
[2024-05-29 08:52] LABS: ALBUMIN 3.3 gm/dL (3.4-5.0); BILIRUBIN TOTAL 0.79 mg/dL (0.3-1.2); CALCIUM 8.6 mg/dL (8.5-10.1); CREATININE SERUM 0.93 mg/dL (0.70-1.30); GFR 78.58; GLOBULINA 3.9 G/DL (2.4-3.5); POTASSIUM 3.67 mEq/L (3.5-5.1); TOTAL PROTEIN 7.2 gm/dL (6.4-8.2)
[2024-05-29 09:08] LABS: MANUAL PLATELET COUNT 190
[2024-05-29 09:09] LABS: PLATELET ESTIMATE NORMAL (NORMAL)
[2024-05-30 15:07] LABS: kappa lambda r 0.99 (0.26-1.65); kappa light 87.7 mg/L (3.3-19.4); lambda light 88.5 mg/L (5.7-26.3)
[2024-05-31 09:08] LABS: BETA-2-MICROGLOBULINA 1.7 mg/L (0.6-2.4)
[2024-05-31 13:06] LABS: IMM A 459 mg/dL (61-437); IMM G 1657 mg/dL (603-1613); IMM M 62 mg/dL (15-143); a:g ratio 0.9 (0.7-1.7); alpha 1 g 0.2 g/dL (0.0-0.4); alpha 2 0.6 g/dL (0.4-1.0); beta g 1.1 g/dL (0.7-1.3); gamma g 1.7 g/dL (0.4-1.8); globulin t 3.7 g/dL (2.2-3.9); m spike Not Observed g/dL (Not Observed); prot total 7.1 g/dL (6.0-8.5)
[2024-05-31 15:10] LABS: albu 58.5 % (.); beta 17.4 % (.); gam 17.1 % (.); m spi 0 % (Not Observed); prot 82.4 mg/dL (Not Estab.)
== END 2024-05-29 07:23 | disposition home or self-care (01) ==
LOC: LAB 07:14
PROVIDERS: ATTEND Internal Medicine Hematology & Oncology
DX: D50.8 Other iron deficiency anemias (principal); R79.9 Abnormal finding of blood chemistry, unspecified; I10 Essential (primary) hypertension; R74.02 Elevation of levels of lactic acid dehydrogenase [LDH]; K76.89 Other specified diseases of liver; D47.02 Systemic mastocytosis; C90.00 Multiple myeloma not having achieved remission; D47.2 Monoclonal gammopathy; D63.8 Anemia in other chronic diseases classified elsewhere; D50.0 Iron deficiency anemia secondary to blood loss (chronic); D51.1 Vitamin B12 deficiency anemia due to selective vitamin B12 malabsorption with proteinuria; E11.9 Type 2 diabetes mellitus without complications; K57.30 Diverticulosis of large intestine without perforation or abscess without bleeding; D68.32 Hemorrhagic disorder due to extrinsic circulating anticoagulants; R10.30 Lower abdominal pain, unspecified; C44.321 Squamous cell carcinoma of skin of nose

== ENCOUNTER 2024-08-09 06:25 | Outpatient (CLI) | payer OTHER ==
[2024-08-09 06:49] LABS: HEMATOCRIT 43.3 % (39.0-48.0); HEMOGLOBIN 15.1 g/dL (13-16.00); MEAN CELL VOLUME 92.7 fL (80.0-100.00); MEAN CORPUSCULAR HEMOGLOBIN 32.4 pg (27.00-32.0); MEAN CORPUSCULAR HGB CONC 34.9 g/dl (32.0-36.0); RED BLOOD COUNT 4.67 M/uL (4.00-6.00); RED CELL DISTRIBUTION WIDTH 15.7 % (11.5-14.5)
[2024-08-09 06:54] LABS: PLATELET COUNT 122 K/uL (150-450)
[2024-08-09 07:28] LABS: ALBUMIN 3.4 gm/dL (3.4-5.0); BILIRUBIN TOTAL 0.85 mg/dL (0.3-1.2); CALCIUM 8.9 mg/dL (8.5-10.1); CREATININE SERUM 0.97 mg/dL (0.70-1.30); GFR 74.85; GLOBULINA 3.8 G/DL (2.4-3.5); POTASSIUM 4.04 mEq/L (3.5-5.1); TOTAL PROTEIN 7.2 gm/dL (6.4-8.2)
[2024-08-09 11:27] LABS: MANUAL PLATELET COUNT 348; PLATELET ESTIMATE NORMAL (NORMAL)
== END 2024-08-09 06:26 | disposition home or self-care (01) ==
LOC: LAB 06:25
PROVIDERS: ATTEND Internal Medicine Hematology & Oncology
DX: C90.00 Multiple myeloma not having achieved remission (principal); D50.0 Iron deficiency anemia secondary to blood loss (chronic); D51.1 Vitamin B12 deficiency anemia due to selective vitamin B12 malabsorption with proteinuria; I10 Essential (primary) hypertension; E11.9 Type 2 diabetes mellitus without complications; K57.30 Diverticulosis of large intestine without perforation or abscess without bleeding; D68.32 Hemorrhagic disorder due to extrinsic circulating anticoagulants; R10.30 Lower abdominal pain, unspecified; C44.321 Squamous cell carcinoma of skin of nose; D50.8 Other iron deficiency anemias; R79.9 Abnormal finding of blood chemistry, unspecified; R74.02 Elevation of levels of lactic acid dehydrogenase [LDH]; K76.89 Other specified diseases of liver

== ENCOUNTER 2024-08-25 06:44 | Outpatient (CLI) | payer OTHER ==
[2024-08-25 07:15] LABS: PH,URINE 5.5 (5.0-8.0); URINE APPEARANCE Clear; URINE BILIRRUBIN Negative (NEGATIVE); URINE COLOR Yellow; URINE KETONE Negative (NEGATIVE); URINE LEUKOCYTE Negative; URINE NITRATE Negative; URINE UROBILINOGEN 0.2 E.U./dl
[2024-08-25 07:19] LABS: HEMATOCRIT 43.6 % (39.0-48.0); HEMOGLOBIN 14.9 g/dL (13-16.00); MEAN CELL VOLUME 93.1 fL (80.0-100.00); MEAN CORPUSCULAR HEMOGLOBIN 31.8 pg (27.00-32.0); MEAN CORPUSCULAR HGB CONC 34.1 g/dl (32.0-36.0); RED BLOOD COUNT 4.68 M/uL (4.00-6.00); RED CELL DISTRIBUTION WIDTH 15.1 % (11.5-14.5)
[2024-08-25 07:19] LABS: URINE BACTERIA 13.8 uL (0.0-1933); URINE EPITHELIAL CELLS 3.5 uL (0.0-38.8); URINE RBC 9.3 uL (0.0-20.8); URINE WBC 23.4 uL (0.0-23.2)
[2024-08-25 07:20] LABS: PLATELET COUNT 124 K/uL (150-450)
[2024-08-25 07:31] LABS: URINE BLOOD Trace; URINE GLUCOSE >=1000 MG/DL (NEGATIVE); URINE PROTEIN 100 (NEGATIVE)
[2024-08-25 08:13] LABS: ALBUMIN 3.2 gm/dL (3.4-5.0); BILIRUBIN TOTAL 0.72 mg/dL (0.3-1.2); CALCIUM 8.5 mg/dL (8.5-10.1); CREATININE SERUM 0.97 mg/dL (0.70-1.30); GFR 74.85; GLOBULINA 3.7 G/DL (2.4-3.5); POTASSIUM 4.06 mEq/L (3.5-5.1); TOTAL PROTEIN 6.9 gm/dL (6.4-8.2); TSH 1.95 uIU/mL (0.358-3.74)
== END 2024-08-25 06:49 | disposition home or self-care (01) ==
LOC: LAB 06:44
PROVIDERS: ATTEND Internal Medicine Geriatric Medicine
DX: D50.9 Iron deficiency anemia, unspecified (principal); E03.9 Hypothyroidism, unspecified; E78.2 Mixed hyperlipidemia; I11.9 Hypertensive heart disease without heart failure; E56.8 Deficiency of other vitamins; N39.0 Urinary tract infection, site not specified; Z12.11 Encounter for screening for malignant neoplasm of colon; R19.5 Other fecal abnormalities; E55.9 Vitamin D deficiency, unspecified; N19 Unspecified kidney failure; E11.9 Type 2 diabetes mellitus without complications

== ENCOUNTER → 2024-09-11 06:11 | Outpatient (CLI) | payer OTHER ==
[2024-09-11 07:29] LABS: HEMATOCRIT 43.3 % (39.0-48.0); HEMOGLOBIN 15.2 g/dL (13-16.00); MEAN CELL VOLUME 91.8 fL (80.0-100.00); MEAN CORPUSCULAR HEMOGLOBIN 32.1 pg (27.00-32.0); PLATELET COUNT 146 K/uL (150-450); RED BLOOD COUNT 4.72 M/uL (4.00-6.00); RED CELL DISTRIBUTION WIDTH 15.5 % (11.5-14.5)
[2024-09-11 07:58] LABS: PH,URINE 5.5 (5.0-8.0); URINE APPEARANCE Clear; URINE BILIRRUBIN Negative (NEGATIVE); URINE BLOOD Trace; URINE COLOR Yellow; URINE KETONE Negative (NEGATIVE); URINE LEUKOCYTE Negative; URINE NITRATE Negative; URINE PROTEIN 30 (NEGATIVE); URINE UROBILINOGEN 0.2 E.U./dl
[2024-09-11 08:07] LABS: URINE EPITHELIAL CELLS 1.8 uL (0.0-38.8); URINE RBC 3.3 uL (0.0-20.8); URINE WBC 11.8 uL (0.0-23.2)
[2024-09-11 08:08] LABS: URINE BACTERIA 3.7 uL (0.0-1933); URINE GLUCOSE >=1000 MG/DL (NEGATIVE)
[2024-09-11 08:23] LABS: ALBUMIN 3.3 gm/dL (3.4-5.0); CALCIUM 8.7 mg/dL (8.5-10.1); CREATININE SERUM 0.91 mg/dL (0.70-1.30); GFR 80.57; PHOSPHOROUS 3.3 mg/dL (2.5-4.9); POTASSIUM 4.22 mEq/L (3.5-5.1)
== END | disposition home or self-care (01) ==
LOC: LAB 06:11
PROVIDERS: ATTEND Internal Medicine Nephrology
DX: N18.2 Chronic kidney disease, stage 2 (mild) (principal); I10 Essential (primary) hypertension; E11.22 Type 2 diabetes mellitus with diabetic chronic kidney disease; R80.9 Proteinuria, unspecified

== ENCOUNTER → 2024-10-24 06:14 | Outpatient (CLI) | payer OTHER ==
[~2024-10-24 06:14] MED LIST changes: +BENZONATATE200 M1 PO; +GLUMETZA500 MG PO; +LENALIDOMIDE PO; +NASA MIST SALIN75 ML IH; +OSEL75CA PO
[2024-10-24 08:31] LABS: HEMOGLOBIN 14.3 g/dL (13-16.00); MEAN CORPUSCULAR HEMOGLOBIN 31.3 pg (27.00-32.0); MEAN CORPUSCULAR HGB CONC 33.3 g/dl (32.0-36.0); RED BLOOD COUNT 4.58 M/uL (4.00-6.00); RED CELL DISTRIBUTION WIDTH 15.7 % (11.5-14.5)
[2024-10-24 08:48] LABS: PLATELET COUNT 117 K/uL (150-450)
[2024-10-24 08:59] LABS: ALBUMIN 3.2 gm/dL (3.4-5.0); BILIRUBIN TOTAL 0.61 mg/dL (0.3-1.2); CALCIUM 8.4 mg/dL (8.5-10.1); CREATININE SERUM 0.9 mg/dL (0.70-1.30); GFR 81.61; GLOBULINA 3.6 G/DL (2.4-3.5); POTASSIUM 3.78 mEq/L (3.5-5.1); TOTAL PROTEIN 6.8 gm/dL (6.4-8.2)
[2024-10-24 13:16] LABS: FOLIC ACID 10.79 ng/ml (4.78-20)
[2024-10-24 14:02] LABS: MANUAL PLATELET COUNT 174
[2024-10-24 14:03] LABS: PLATELET ESTIMATE NORMAL (NORMAL)
[2024-10-26 08:08] LABS: IMM A 457 mg/dL (61-437); IMM G 1587 mg/dL (603-1613); IMM M 57 mg/dL (15-143); a:g ratio 0.9 (0.7-1.7); alpha 1 g 0.2 g/dL (0.0-0.4); alpha 2 0.6 g/dL (0.4-1.0); gamma g 1.7 g/dL (0.4-1.8); globulin t 3.4 g/dL (2.2-3.9); m spike Not Observed g/dL (Not Observed); prot total 6.6 g/dL (6.0-8.5)
[2024-10-26 10:05] LABS: BETA-2-MICROGLOBULINA 1.9 mg/L (0.6-2.4); kappa lambda r 1.33 (0.26-1.65); kappa light 88.9 mg/L (3.3-19.4); lambda light 66.7 mg/L (5.7-26.3)
[2024-10-26 14:09] LABS: albu 54.2 % (.); alp 4.6 % (.); alph 2 3.3 % (.); beta 16.2 % (.); gam 21.7 % (.); m spi 0 % (Not Observed); prot 45.6 mg/dL (Not Estab.)
== END | disposition home or self-care (01) ==
LOC: LAB 06:14
PROVIDERS: ATTEND Internal Medicine Hematology & Oncology
DX: C90.00 Multiple myeloma not having achieved remission (principal); D50.0 Iron deficiency anemia secondary to blood loss (chronic); D51.1 Vitamin B12 deficiency anemia due to selective vitamin B12 malabsorption with proteinuria; I10 Essential (primary) hypertension; E11.9 Type 2 diabetes mellitus without complications; K57.30 Diverticulosis of large intestine without perforation or abscess without bleeding; D68.32 Hemorrhagic disorder due to extrinsic circulating anticoagulants; R10.30 Lower abdominal pain, unspecified; C44.321 Squamous cell carcinoma of skin of nose

== ENCOUNTER 2024-10-27 17:17 | Emergency (ER) | payer OTHER ==
[~2024-10-27] VITALS: Ht 188 cm; Wt 87.1 kg
[~2024-10-27 17:17] MED LIST changes: -BENZONATATE200 M1 PO; -GLUMETZA500 MG PO; -LENALIDOMIDE PO; -NASA MIST SALIN75 ML IH; -OSEL75CA PO
[2024-10-27] MEDS ORDERED: GLUMETZA500 MG PO (17:44)
[2024-10-27] MEDS ORDERED: LENALIDOMIDE PO (17:44)
[2024-10-27] MEDS ORDERED: TRAMADOL HCL 50 MG TABLET PO STA (18:51)
== END 2024-10-27 21:12 | disposition home or self-care (01) ==
LOC: ER 17:20
DX: S52.591A Other fractures of lower end of right radius, initial encounter for closed fracture (principal); S52.611A Displaced fracture of right ulna styloid process, initial encounter for closed fracture; W18.39XA Other fall on same level, initial encounter; Y93.89 Activity, other specified; Y92.018 Other place in single-family (private) house as the place of occurrence of the external cause; Z88.0 Allergy status to penicillin; C90.00 Multiple myeloma not having achieved remission

== ENCOUNTER 2024-10-31 16:43 | Emergency (ER) | payer OTHER ==
[~2024-10-31] VITALS: Ht 188 cm; Wt 85.3 kg
[~2024-10-31 16:43] MED LIST changes: +GLUMETZA500 MG PO; +LENALIDOMIDE PO
[2024-10-31] MEDS ORDERED: ACETAMINOPHEN 500 MG GEL..CAP PO ONE ×2 (18:30→18:36)
[2024-10-31] MEDS ORDERED: OSEL75CA PO (19:47)
[2024-10-31] MEDS ORDERED: BENZONATATE200 M1 PO (19:47)
[2024-10-31] MEDS ORDERED: NASA MIST SALIN75 ML IH (19:48)
== END 2024-10-31 20:38 | disposition home or self-care (01) ==
LOC: ER 16:45
DX: J10.1 Influenza due to other identified influenza virus with other respiratory manifestations (principal); Z88.0 Allergy status to penicillin; I10 Essential (primary) hypertension; C90.00 Multiple myeloma not having achieved remission; Z98.0 Intestinal bypass and anastomosis status; Z20.822 Contact with and (suspected) exposure to COVID-19

== ENCOUNTER → 2024-11-20 06:22 | Outpatient (CLI) | payer OTHER ==
[~2024-11-20 06:22] MED LIST changes: +BENZONATATE200 M1 PO; +NASA MIST SALIN75 ML IH; +OSEL75CA PO
[2024-11-20 07:15] LABS: PH,URINE 5.5 (5.0-8.0); URINE APPEARANCE Clear; URINE BILIRRUBIN Negative (NEGATIVE); URINE BLOOD Trace; URINE COLOR Yellow; URINE EPITHELIAL CELLS 1.7 uL (0.0-38.8); URINE KETONE Negative (NEGATIVE); URINE LEUKOCYTE Negative; URINE NITRATE Negative; URINE RBC 7.6 uL (0.0-20.8); URINE UROBILINOGEN 0.2 E.U./dl; URINE WBC 9.1 uL (0.0-23.2)
[2024-11-20 07:16] LABS: URINE BACTERIA 2.4 uL (0.0-1933); URINE CAST 1.17 uL (0.0-1.40); URINE GLUCOSE >=1000 MG/DL (NEGATIVE); URINE PROTEIN 100 (NEGATIVE)
[2024-11-20 07:25] LABS: HEMATOCRIT 42.4 % (39.0-48.0); HEMOGLOBIN 14.4 g/dL (13-16.00); MEAN CELL VOLUME 93.3 fL (80.0-100.00); MEAN CORPUSCULAR HEMOGLOBIN 31.7 pg (27.00-32.0); PLATELET COUNT 207 K/uL (150-450); RED BLOOD COUNT 4.54 M/uL (4.00-6.00); RED CELL DISTRIBUTION WIDTH 15.6 % (11.5-14.5)
[2024-11-20 08:43] LABS: ALBUMIN 3.2 gm/dL (3.4-5.0); BILIRUBIN TOTAL 0.65 mg/dL (0.3-1.2); CALCIUM 9.1 mg/dL (8.5-10.1); CHOL HDL RATIO 1.8 (0-5.0); CREATININE SERUM 0.85 mg/dL (0.70-1.30); GFR 86.95; GLOBULINA 4.1 G/DL (2.4-3.5); POTASSIUM 3.89 mEq/L (3.5-5.1); TOTAL PROTEIN 7.3 gm/dL (6.4-8.2); TSH 2.18 uIU/mL (0.358-3.74)
== END | disposition home or self-care (01) ==
LOC: LAB 06:22
PROVIDERS: ATTEND Internal Medicine Geriatric Medicine
DX: D50.9 Iron deficiency anemia, unspecified (principal); E03.9 Hypothyroidism, unspecified; E78.2 Mixed hyperlipidemia; I11.9 Hypertensive heart disease without heart failure; E56.8 Deficiency of other vitamins; N39.0 Urinary tract infection, site not specified; Z12.11 Encounter for screening for malignant neoplasm of colon; R19.5 Other fecal abnormalities; E55.9 Vitamin D deficiency, unspecified; N19 Unspecified kidney failure; E11.9 Type 2 diabetes mellitus without complications; R80.9 Proteinuria, unspecified; C18.9 Malignant neoplasm of colon, unspecified; K92.1 Melena; Z12.5 Encounter for screening for malignant neoplasm of prostate

== ENCOUNTER → 2024-11-21 11:32 | Outpatient (CLI) | payer OTHER ==
[2024-11-21 13:22] LABS: ob NEGATIVE (NEGATIVE)
== END | disposition home or self-care (01) ==
LOC: LAB 11:32
PROVIDERS: ATTEND Internal Medicine Geriatric Medicine
DX: D50.9 Iron deficiency anemia, unspecified (principal); E03.9 Hypothyroidism, unspecified; E78.2 Mixed hyperlipidemia; I11.9 Hypertensive heart disease without heart failure; E56.8 Deficiency of other vitamins; N39.0 Urinary tract infection, site not specified; Z12.11 Encounter for screening for malignant neoplasm of colon; E55.9 Vitamin D deficiency, unspecified; N19 Unspecified kidney failure; E11.9 Type 2 diabetes mellitus without complications; R80.9 Proteinuria, unspecified; K92.1 Melena; Z12.5 Encounter for screening for malignant neoplasm of prostate

== ENCOUNTER 2024-12-14 06:18 | Outpatient (CLI) | payer OTHER ==
[2024-12-14 07:56] LABS: PH,URINE 5.5 (5.0-8.0); URINE APPEARANCE Clear; URINE BILIRRUBIN Negative (NEGATIVE); URINE BLOOD NHT; URINE COLOR Yellow; URINE KETONE Negative (NEGATIVE); URINE LEUKOCYTE Negative; URINE NITRATE Negative; URINE UROBILINOGEN 0.2 E.U./dl
[2024-12-14 07:57] LABS: URINE BACTERIA 7.3 uL (0.0-1933); URINE RBC 9.7 uL (0.0-20.8); URINE WBC 12.1 uL (0.0-23.2)
[2024-12-14 08:02] LABS: URINE GLUCOSE >=1000 MG/DL (NEGATIVE); URINE PROTEIN 100 (NEGATIVE)
== END 2024-12-14 06:25 | disposition home or self-care (01) ==
LOC: LAB 06:18
PROVIDERS: ATTEND Internal Medicine Geriatric Medicine
DX: N39.0 Urinary tract infection, site not specified (principal)

== ENCOUNTER → 2025-01-13 07:06 | Outpatient (CLI) | payer OTHER | END | disposition home or self-care (01) | LOC: LAB 07:06 | PROVIDERS: ATTEND Internal Medicine Geriatric Medicine | DX: R19.7 Diarrhea, unspecified (principal) ==